=== PATIENT | female | born 1980 | race Caucasian/White ===

== ENCOUNTER 2021-11-07 21:55 | Emergency (ER) | payer SELFPAY ==
[2021-11-07] MEDS ORDERED: predniSONE 10 MG Tab ONE (22:00)
[2021-11-07] MEDS: diphenhydrAMINE 50 MG Cap PO ONE (22:15)
[2021-11-07] MEDS: methylPREDNISolone Sodium Succinate 125 MG/2 ML SDV IM ONE (22:15)
[2021-11-07 22:26] VITALS: BP 150/94; PULSE 92
== END 2021-11-07 22:31 | disposition home or self-care (01) ==
LOC: LB.ED 21:55
DX: L50.9 Urticaria, unspecified (principal)
CPT/HCPCS: 96372; 99282; A9270-GY; J2930; J7512